=== PATIENT | male | born 1990 | race Caucasian/White ===

== ENCOUNTER → 2023-03-10 14:03 | Outpatient (CLI) | payer OTHER, SELFPAY ==
--- NOTE | 2023-03-10 14:04 | DI.RAD.S_ITS ---
PROCEDURE: XR THORACIC SPINE 2V INDICATIONS: paraspinal muscle tenderness, radiculopthy new Left TECHNIQUE: 3 views of the thoracic spine were acquired. COMPARISON: None. FINDINGS: Bones: No fractures or dislocations. No suspicious bony lesions. 12 pairs of ribs are noted, and appear intact where visualized. Soft tissues: No paravertebral stripe thickening. IMPRESSION: Unremarkable thoracic spine radiographs Approved by: Jonathan Koehler M.D. on 03/10/2023 at 15:18
--- NOTE | 2023-03-10 14:04 | DI.RAD.S_ITS ---
PROCEDURE: XR CERVICAL SPINE 2V OR 3V INDICATIONS: Hx disc problem C5-6, new radiculopathy Left TECHNIQUE: 3 view(s) of the cervical spine were acquired. COMPARISON: None. FINDINGS: Bones: No fractures or dislocations to the T1 level. The lateral masses of C1 appear intact on the odontoid view. No suspicious bony lesions. Soft tissues: No prevertebral soft tissue swelling. IMPRESSION: Unremarkable cervical spine radiographs Approved by: Jonathan Koehler M.D. on 03/10/2023 at 15:20
== END ==
PROVIDERS: Family Provider Orthopaedic Surgery; Referring Provider Student in an Organized Health Care Education/Training Program; Visit Provider Student in an Organized Health Care Education/Training Program
DX: M54.10 Radiculopathy, site unspecified (principal); M62.838 Other muscle spasm
CPT/HCPCS: 72040; 72070

== ENCOUNTER → 2025-02-07 08:08 | Outpatient (CLI) | payer OTHER, SELFPAY | PROVIDERS: Family Provider Orthopaedic Surgery; PCP Family Medicine; Referring Provider Internal Medicine Critical Care Medicine; Visit Provider Internal Medicine Critical Care Medicine | DX: R93.89 Abnormal findings on diagnostic imaging of other specified body structures (principal); F17.210 Nicotine dependence, cigarettes, uncomplicated; R94.2 Abnormal results of pulmonary function studies | CPT/HCPCS: 94060; 94729 ==